=== PATIENT | male | born 1980 | race Caucasian/White ===

== ENCOUNTER 2018-09-07 13:27 | Emergency (ER) | payer OTHER ==
[2018-09-07 13:31] VITALS: BP 116/68
--- NOTE | 2018-09-07 13:49 | EDPHY ---
General Time Seen by Provider: 09/07/18 13:48 Narrative: CLINICAL IMPRESSION: Chin laceration, abrasion of multiple sites ASSESSMENT/PLAN: [ []with a history of [] who presents for evaluation of []. Patient is not toxic appearing, [] is in no distress. Physical examination reveals []. There is no evidence of deep structure involvement, neurovascular compromise, foreign body, or bony involvement. The wound was not contaminated, tetanus status was [] . The wound was irrigated and then repaired as discussed in the procedure note, the patient tolerated this well. Wound care instructions discussed with patient and family member. [] is well established with his PCP, they will call to schedule an appointment for wound check. Return precautions discussed- [] will return for increased pain, signs of infection, fever, vomiting, if the wound opens or for any other concerns. Patient and family member both verbalize understanding and are in agreement with plan] DIFFERENTIAL DIAGNOSIS: [ includes but not limited to laceration of tendon or vascular structure, underlying fracture, laceration with retained FB] ED PROCEDURES: Laceration Repair Verbal consent obtained by patient. Risks discussed, including but not limited to infection, pain, retained foreign body, need for additional repair, poor cosmetic result, tendon damage, nerve damage, poor wound healing, vascular damage. Alternatives to repair discussed. [place] protocol used to establish correct patient, procedure, equipment, network support specialist, and site. Anesthesia obtained by local infiltration. Anesthetized with lidocaine with epinephrine. Laceration location right chin, length 3 cm, depth 8 mm, Repair type intermediate. Patient was prepped and draped in usual sterile fashion. Hemostasis achieved with direct pressure. Wound explored through full range of motion and entire depth of wound probed and visualized with gloved finger. No suspicion for nerve damage, tendon damage, underlying fracture, vascular damage, foreign body, or contamination. Area was cleansed with Shur-Clens and irrigated with sterile saline as per protocol. No foreign body or material removed. Repair method the deep layer was closed with 5 0 PDS, 3 simple interrupted sutures. The superficial layer was closed with 5.0 Prolene interrupted, a total of 11 sutures placed. Well aligned, closely approximated. wound was dressed with [ ]. Patient tolerated well with no immediate complications. Wound care: [Clean and dry x 24 hours, gently clean with soap and water, cover with topical antibiotic ointment/bandage.] Suture/Staple removal: [ ] Days CHIEF COMPLAINT: [Chin Laceration ] HPI: [ ] PAST MEDICAL HISTORY: Denies Pertinent Past Surgical History: Denies Social History: Denies REVIEW OF SYSTEMS: All other systems negative Constitutional: [No fever, no chills] Musculoskeletal: Left palm pain. [No deformity.] Skin: Chin laceration, multiple abrasions Neurological: [No sensory loss or weakness.] PHYSICAL EXAM: General Appearance: [Alert, oriented, appropriate for age, cooperative, NAD, well hydrated, non-toxic appearing, VSS, no hypoxia.] Neurological: [ Alert and oriented x 3] Skin: [ ] Musculoskeletal: [ ] 3 cm macerated, irregular combination of abrasion laceration to the right chin. Abrasion left. Thumb metacarpal. Left palmar tenderness to palpation. No anatomical snuffbox tenderness Right thigh with 2 cm abrasion, right knee and lateral calf with very superficial faint road rash. MEDICAL DECISION MAKING: Patient was seen independently. Secondary supervising physician at time of evaluation was Dr. Gonzales, he did not evaluate this patient. Diagnosis: Chin laceration, abrasion of multiple sites. Summary: [See assessment and plan for summary of ED visit ] Clinical lab tests: Not applicable. Independent visualization of images, tracing, or specimens: not applicable. Decision to obtain medical records or history from someone other than the patient: No Review / Summarize previous medical records: No Discussed patient with another provider: Yes, Dr. Gonzales - History Smoking Status: Never smoked - Objective Vital Signs: Initial Vital Signs Temperature (C) 36.9 C 09/07/18 13:29 Heart Rate 54 L 09/07/18 13:29 Respiratory Rate 18 09/07/18 13:29 Blood Pressure 116/68 09/07/18 13:29 O2 Sat (%) 96 09/07/18 13:29 O2 Delivery Mode Room Air Allergies/Adverse Reactions: Sulfa (Sulfonamide Antibiotics) Allergy (Verified 09/07/18 13:31) Home Medications: Medication Instructions Recorded NK [No Known Home Meds] 09/07/18 Departure - Departure Disposition: Home, Routine, Self-Care Clinical Impression: Laceration of chin, Abrasion, multiple sites Condition: Good Instructions: Laceration (ED) Additional Instructions: DISCHARGE INSTRUCTIONS FROM YOUR DOCTOR Thank you for visiting our emergency department today. Please keep in mind that discharge from the emergency department does not mean that there is nothing wrong - it simply means that we have not identified an emergency condition that requires further evaluation or treatment in the hospital. You should always plan to follow up with primary care for re-evaluation of your condition in the next 2-3 days. Keep wound clean and dry for 24 hours. Then remove dressing, clean at least twice daily or when soiled with soap and water, apply antibiotic ointment and dressing. Do not soak the wound while the stitches are in place. Anticipate suture removal in 5 days. For pain control: You may take Tylenol, I recommend 500-1000 mg every 6-8 hours as needed. Take with food and a full glass of water. Stop taking if this is upsetting her stomach. Do not exceed 4000 mg in a 24 hr period. You may also take ibuprofen, recommend 400 mg every 6 hr. Take with food and a full glass of water. Stop taking if this upsets her stomach. Do not exceed 2400 mg in a 24 hr period. Schedule a follow-up visit with your primary care physician or the emergency department for suture removal in 5 days and sooner for wound check for any concerns. Return for signs of wound infection ie: redness, swelling, drainage, foul odor, red streaks, fever, chills, pain, bleeding, if the stitches pop, if the wound opens or for any other new, worsening or worrisome symptoms. People present with illnesses and injuries in different ways, and it is always possible that we have missed something. You may always return for re-evaluation if symptoms worsen or if they are not improving or if you develop new/different symptoms. Again, thank you for choosing our emergency department. We hope that you feel better. Referrals: KRISS JONES [Primary Care Provider] - As per Instructions (Five days for suture removal) ED,PHYSICIAN GEOVANI [Medical Doctor] - As per Instructions (Five days for suture removal)
== END 2018-09-13 10:14 | disposition home or self-care (01) ==
PROC: 0HQ1XZZ Repair Face Skin, External Approach (ICD-10-PCS; principal; 2018-09-07)
DX: S01.81XA Laceration without foreign body of other part of head, initial encounter (principal); S70.311A Abrasion, right thigh, initial encounter; S60.312A Abrasion of left thumb, initial encounter; S80.211A Abrasion, right knee, initial encounter; V19.9XXA Pedal cyclist (driver) (passenger) injured in unspecified traffic accident, initial encounter; Y93.55 Activity, bike riding